=== PATIENT | female | born 1935 | race American Indian/Alaskan Native ===

== ENCOUNTER 2018-08-05 14:09 | Outpatient (CLI) | payer MEDICAID ==
[2018-08-05 14:58] LABS: BUN/Creatinine Ratio 47; Blood Urea Nitrogen 28 mg/dL (7-17); Calcium 9.4 mg/dL (8.4-10.2); Hemolysis Index 23
== END 2018-08-05 14:10 | disposition home or self-care (01) ==
LOC: LAB 14:09
PROVIDERS: ATTEND Surgery
DX: L89.613 Pressure ulcer of right heel, stage 3 (principal); L89.622 Pressure ulcer of left heel, stage 2; I87.8 Other specified disorders of veins
CPT/HCPCS: 36415; 80048

== ENCOUNTER 2018-08-20 11:02 | Outpatient (CLI) | payer MEDICAID ==
[2018-08-20] MEDS ORDERED: XYLOCAINE TOPICAL 4% TP ONE (11:30)
[2018-08-20] MEDS ORDERED: SILVER NITRATE TP ONE (11:30)
== END 2018-08-20 11:03 | disposition home or self-care (01) ==
LOC: WOUND 11:02
PROVIDERS: ATTEND Surgery
DX: L89.613 Pressure ulcer of right heel, stage 3 (principal); L89.622 Pressure ulcer of left heel, stage 2; L89.521 Pressure ulcer of left ankle, stage 1; I87.8 Other specified disorders of veins; G30.9 Alzheimer's disease, unspecified; F01.50 Vascular dementia, unspecified severity, without behavioral disturbance, psychotic disturbance, mood disturbance, and anxiety; Z86.73 Personal history of transient ischemic attack (TIA), and cerebral infarction without residual deficits

== ENCOUNTER 2018-08-26 11:16 | Outpatient (CLI) | payer MEDICAID | END 2018-08-26 11:17 | disposition home or self-care (01) | LOC: WOUND 11:16 | PROVIDERS: ATTEND Surgery | DX: L89.613 Pressure ulcer of right heel, stage 3 (principal); L89.622 Pressure ulcer of left heel, stage 2; L89.521 Pressure ulcer of left ankle, stage 1; I87.8 Other specified disorders of veins; G30.9 Alzheimer's disease, unspecified; F01.50 Vascular dementia, unspecified severity, without behavioral disturbance, psychotic disturbance, mood disturbance, and anxiety; Z86.73 Personal history of transient ischemic attack (TIA), and cerebral infarction without residual deficits | CPT/HCPCS: 87076; 87116; 87186 ==

== ENCOUNTER 2018-09-01 11:05 | Outpatient (CLI) | payer MEDICAID ==
[2018-09-01] MEDS ORDERED: SILVER NITRATE TP ONE (12:21)
[2018-09-01] MEDS ORDERED: XYLOCAINE TOPICAL 4% TP ONE (12:21)
== END 2018-09-01 11:06 | disposition home or self-care (01) ==
LOC: WOUND 11:05
PROVIDERS: ATTEND Surgery
DX: L89.613 Pressure ulcer of right heel, stage 3 (principal); L89.622 Pressure ulcer of left heel, stage 2; L89.521 Pressure ulcer of left ankle, stage 1; I87.8 Other specified disorders of veins; G30.9 Alzheimer's disease, unspecified; F01.50 Vascular dementia, unspecified severity, without behavioral disturbance, psychotic disturbance, mood disturbance, and anxiety; Z86.73 Personal history of transient ischemic attack (TIA), and cerebral infarction without residual deficits